=== PATIENT | male | born 1950 | race Caucasian/White ===

== ENCOUNTER 2019-08-22 08:26 | Inpatient (IN) | payer BC, MEDICARE ==
[2019-08-11 09:12] LABS: ABSOLUTE BASOPHILS 0.1 thou/uL (0.0-0.2); ABSOLUTE EOSINOPHILS 0.2 thou/uL (0.0-0.7); ABSOLUTE LYMPHOCYTES 2.3 thou/uL (0.8-5.3); ABSOLUTE MONOCYTES 0.7 thou/uL (0.0-1.2); ABSOLUTE NEUTROPHILS 6.5 thou/uL (1.6-8.1); BASOPHILS 1.2 %; HEMATOCRIT 44.7 % (42.0-52.0); HEMOGLOBIN 15.3 gm/dL (14.0-18.0); LYMPHOCYTES 23.3 %; MCH 30.4 pg (26.0-34.0); MCHC 34.1 g/dL (28.0-37.0); MCV 89.2 fL (80.0-100.0); MPV 7.7 fl. (7.2-11.1); NUCLEATED RBCS 0 /100WBC; PLATELET COUNT* 233 thou/uL (150-400); POLYS 66.5 %; RBC 5.01 mil/uL (4.50-6.00); RDW-CV 13.6 % (10.5-14.5); WBC 9.8 thou/uL (4.0-11.0)
[2019-08-11 09:22] LABS: APTT 28.4 Seconds (25.0-31.3); INR 0.9; PROTIME 9.6 Seconds (9.20-11.50)
[2019-08-11 09:24] LABS: ALBUMIN 3.8 g/dL (3.4-5.0); CALCIUM 8.9 mg/dL (8.5-10.1); POTASSIUM 4.3 mmol/L (3.5-5.1); TOTAL BILIRUBIN 0.2 mg/dL (<0.1-1.0); TOTAL PROTEIN 7.6 g/dL (6.4-8.2)
[2019-08-11 10:29] LABS: ESR (SEDRATE) 15 mm/hr (0-20)
--- NOTE | 2019-08-11 17:06 | EKG ---
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
[2019-08-11 23:08] LABS: GLYCOHEMOGLOBIN (HGB A1C) 5.5 % (4.8-5.6)
[~2019-08-22] VITALS: Ht 177.8 cm; Wt 102.1 kg
[~2019-08-22 08:26] MED LIST: NOHOMEMEDICATIONS
[2019-08-22 10:15] VITALS: BP 126/85
[2019-08-22 17:30] VITALS: BP 142/84
[2019-08-22 19:45] VITALS: BP 143/85
[2019-08-23] VITALS: BP 116/74
[2019-08-23 04:00] VITALS: BP 113/73
[2019-08-23 04:19] LABS: HEMATOCRIT 39.9 % (42.0-52.0); HEMOGLOBIN 13.4 gm/dL (14.0-18.0)
[2019-08-23 07:45] VITALS: BP 107/64
[2019-08-23 11:40] VITALS: BP 130/73
[2019-08-23 17:20] VITALS: BP 114/72
[2019-08-24] VITALS: BP 140/88
[2019-08-24 04:00] VITALS: BP 134/78
[2019-08-24 04:23] LABS: HEMATOCRIT 36.9 % (42.0-52.0); HEMOGLOBIN 12.5 gm/dL (14.0-18.0)
[2019-08-24 08:00] VITALS: BP 127/90
[2019-08-24 16:00] VITALS: BP 130/83
[2019-08-24 20:30] VITALS: BP 129/78
[2019-08-25 07:48] VITALS: BP 138/68
[2019-08-25] MEDS ORDERED: ELIQUIS5 MG PO (08:35)
[2019-08-25] MEDS ORDERED: OXYCODONE HCL 55 MG PO (08:35)
[2019-08-25] MEDS ORDERED: LIDOPATCH1 EACH TOP (08:35)
[2019-08-25] MEDS ORDERED: CELEBREX 200 M200 M1 PO (08:35)
[2019-08-25] MEDS ORDERED: TRAMADOL 50 MG50 MG PO (08:35)
[2019-08-25 09:28] VITALS: BP 138/68
--- NOTE | 2019-08-25 10:40 | OP ---
[address] [address] OPERATIVE REPORT Name: JAMIR ROJAS Room: [address] .R.#: [id number] Admission: 08/22/19 Attend Phys: Marisela Hahn Discharge: Date of : 54 Report #: [id number] THIS REPORT FOR: //name// CC: Elmer Ruby DATE OF SERVICE: 08/22/[address] Maxx Hart dictating an operative report for Dr. Néstor Green. PREOPERATIVE DIAGNOSIS: Right knee advanced osteoarthritis. POSTOPERATIVE DIAGNOSIS: Right knee advanced osteoarthritis. SURGEON: Néstor Green DO ASSISTANTS: RADHA Burroughs and Ivan Mera DO, and Maxx Hart DO. OPERATION PERFORMED: Right total knee arthroplasty. ORTHOPEDIC IMPLANTS: Right total knee arthroplasty using [employer] system with the following components: A. Right cruciate retained femoral component measuring 72.5 mm. B. Right fixed cruciate tibial plate with interlocking bar at 79 mm. C. Anterior stabilized tibial bearing, 12 mm. D. Asymmetric patella, 31 mm. TYPE OF ANESTHESIA: General with regional nerve block. ESTIMATED BLOOD LOSS: 100 mL. SPECIMENS REMOVED: None. DRAINS: None. COMPLICATIONS: None apparent. CONDITION: The patient is stable. DISPOSITION: To PACU and then to Med/Surg floor. ANTIBIOTICS: 2 g Ancef, IV piggyback prior to procedure. TOURNIQUET TIME: 59 minutes. INDICATIONS FOR PROCEDURE: The patient is a pleasant 69-year-old male who had [address] [place] [address] OPERATIVE REPORT Name: JAMIR ROJAS Room: [address] IN [facility].#: [id number] Admission: 08/22/19 Attend Phys: Marisela Hahn Discharge: Date of : 54 Report #: [id number] been followed up with the [facility] for his knee osteoarthritis. He had failed at least 3 months of conservative treatment including but not limited to, activity modifications, weight loss, anti-inflammatories, and injections. In the Orthopedic Clinic, discussed the risks, benefits, and complications associated with total knee arthroplasty including possible neurovascular injury, possible infection, complications with anesthesia, DVT, PE, hardware failure, need for revision surgery, extended antibiotics, wound dehiscence, perioperative fracture or fartun-implant fracture postoperatively. Also, DVT, PE, and other imponderables. The patient demonstrated good understanding and wants to proceed with surgery. Consent was signed prior to procedure. OPERATIVE FINDINGS: Upon the arthrotomy, there was extensive tricompartmental arthritic changes to the knee including eburnated and sclerotic bone with osteophytes. Normal appearing joint fluid. DESCRIPTION OF PROCEDURE: I met with the patient in the preoperative suite and marked the correct knee. The patient was then taken to the operating room and placed supine on a well-padded table. He was given the benefit of general anesthesia. Next, the right lower extremity was sterilely prepped and draped in the standard fashion. At this time, a surgical timeout was performed indicating the correct patient, operative site, and procedure to be performed. Also verified antibiotics and all in the room were in agreement. We elected to proceed. The anterior midline incision was drawn out on the skin and he did have a previous scar on his medial knee from previous injury. Therefore, we did perform our midline incision slightly more lateral to allow for adequate skin bridge. The skin and subcutaneous was incised and dissection was carried down to the level of the capsule. At this point, with a new knife, a medial parapatellar capsulotomy was performed. Excised the anterior horn of the meniscus, was able to yuliya the patella and bringing the knee into 120 degrees of flexion. At this time, the remainder of Hoffa's fat pad was debrided as well as the anterior horns of the meniscus. Opening femoral reamer was then introduced followed by the intramedullary femoral guide. Distal femoral cut was made in the standard fashion. Next, our attention was turned to the proximal tibia and the extramedullary tibial guide was placed. Proximal tibia cut was performed in the standard fashion. Next, the knee was brought into extension and a 10 mm spacer block was able to be inserted with good ligamentous balance. Next, we turned our attention to the distal femur and AP sizer was positioned in the drill holes for external rotation were placed. The 4-in-1 cutting block was then placed and the smooth nails were positioned to secure. The anterior and posterior distal femoral cuts as well as chamfer cuts were performed in a standard fashion. The 4-in-1 block was removed. At this point, the trial tibia and trial femur were inserted and a 10 mm spacer was placed. There was full extension and flexion of the knee with some varus valgus ligamentous laxity; therefore, we elected to go up to a 12 mm trial, which provided adequate stability in all planes. At this point, the patella was then addressed, initially I attempted to resurface the patella using the reamer technique; [address] [address] OPERATIVE REPORT Name: JAMIR ROJAS Room: [address] [place]ino#: [id number] Admission: 08/22/19 Attend Phys: Marisela Hahn Discharge: Date of : 54 Report #: [id number] however, there was not adequate bite; therefore I elected to do a standard patellar resurfacing using the sagittal saw. This was performed in standard technique and then the patellar side the holes were drilled and the trial patella was placed. It was then brought through a range of motion and noted to track well. At this time, the trial patella was removed. Knee was brought into flexion and the distal femur drill holes were performed and femoral guide was removed. The proximal tibia was then reamed followed by the cruciform punch. All of the implants were now removed and the knee was thoroughly irrigated. The bone ends were then dried in preparation for cementing. Next, a local cocktail was then inserted into the posterior capsular tissue and surrounding knee and periosteum. Next, the implants were cemented in the standard technique starting with the tibia. This was malleted into place and the excess cement was removed. Femur was then positioned followed by a 12 trial spacer. The patella component was also cemented into place and all remaining cement was removed. There was good stability with the 12 mm trial with the cemented components. Therefore, I elected to proceed with a final 12 mm poly. This was positioned and then the locking bar clicked into place. At this point, the knee was thoroughly irrigated once more and vancomycin powder was introduced into the knee. The arthrotomy/capsule was closed using #1 Vicryl in gjdwoa-sm-iwden technique. After this, a #1 Quill barbed suture was then further utilized to close the capsule. The subcutaneous tissue was then irrigated and the subcutaneous skin was closed with a 2-0 Monocryl in an inverted suture technique followed by a 3-0 running STRATAFIX. Dermabond was then applied. Needle and sponge counts were correct x 2 at the end of procedure. The patient tolerated the procedure well and he was transferred to PACU in stable condition. ATTESTATION: I attest that Dr. Néstor Green was present throughout the entirety of all critical aspects of the case. <ELECTRONICALLY SIGNED> By: Néstor Green DO 08/25/19 1040 1602 [id number] Green DO /nt
[2019-08-25 11:03] VITALS: BP 138/68
== END 2019-08-25 12:09 | disposition home health service (06) | DRG 470 ==
LOC: M.PRE 08:26 → M.TBA 10:02 → M.ORTHSURG 10:02 → M.TBA 10:02 → M.PRE 11:42 → M.ORTHSURG 15:45
PROVIDERS: Orthopaedic Surgery; ADMIT Internal Medicine
PROC: 0SRC0J9 Replacement of Right Knee Joint with Synthetic Substitute, Cemented, Open Approach (ICD-10-PCS; principal; 2019-08-22)
DX: M17.11 Unilateral primary osteoarthritis, right knee (principal); K59.00 Constipation, unspecified; D64.9 Anemia, unspecified; Z88.0 Allergy status to penicillin; Z88.7 Allergy status to serum and vaccine; Z87.891 Personal history of nicotine dependence; Z79.899 Other long term (current) drug therapy